=== PATIENT | male | born 1970 | race African-American/Black ===

== ENCOUNTER 2019-10-13 14:37 | Emergency (ER) | payer SELFPAY ==
[2019-10-13 14:44] VITALS: BP 131/75
[2019-10-13] MEDS ORDERED: DEXAMETHASONE SOD PHOS INJ 10 MG/1 ML VIAL IM ONE (15:16)
[2019-10-13] MEDS ORDERED: METHYLPREDNISOLONE ACETATE INJ 40 MG/1 ML ML IM ONE (15:16)
[2019-10-13] MEDS ORDERED: KETOROLAC TROMETHAMINE 60 MG/2 ML SDV IM ONE (15:16)
--- NOTE | 2019-10-13 15:21 | ER Document Report ---
HPI - HPI Patient complains to provider of: Back pain Time Seen by Provider: 10/13/19 15:12 Pain Level: 4 Context: This is a 49-year-old male who is doing some wheelbarrow work when he strained his left back lateral to midline. Associated Symptoms: None Exacerbated by: Denies Similar symptoms previously: No Recently seen / treated by doctor: No Past Medical History - General Information source: Patient - Social History Smoking Status: Never Smoker Frequency of alcohol use: None Drug Abuse: None Family History: None Patient has homicidal ideation: No - Medical History Medical History: Negative Vertical Provider Document - CONSTITUTIONAL Agree With Documented VS: Yes - HEENT HEENT: Atraumatic, Conjuctival Injection, Normocephalic, PERRLA - NECK Neck: Normal Inspection - RESPIRATORY Respiratory: Breath Sounds Normal, No Respiratory Distress - CARDIOVASCULAR Cardiovascular: Regular Rate, Regular Rhythm - GI/ABDOMEN Gastrointestinal: Abdomen Soft, Abdomen Non-Tender - REPRODUCTIVE Male Genitalia: Normal Inspection - BACK Back: Normal Inspection - MUSCULOSKELETAL/EXTREMETIES Musculoskeletal/Extremeties: MAEW - NEURO Level of Consciousness: Awake, Alert Course - Re-evaluation Re-evalutation: 10/13/19 15:17 No midline tenderness no step-off no crepitus. Patient does have palpable spasm right lateral to midline on the thoracic and lumbar spine. He has no step-off He has no crepitus. He has no loss of bowel or bladder function. He has no saddle anesthesia. He is ambulatory with a rhythmic and steady gait. - Vital Signs Vital signs: Temp Pulse Resp BP Pulse Ox 98.7 F 89 14 131/75 H 95 10/13/19 14:55 10/13/19 14:42 10/13/19 14:42 10/13/19 14:42 10/13/19 14:42 Discharge - Discharge Clinical Impression: Low back strain Qualifiers: Encounter type: initial encounter Qualified Code(s): S39.012A - Strain of muscle, fascia and tendon of lower back, initial encounter Upper back strain Qualifiers: Encounter type: initial encounter Qualified Code(s): S29.012A - Strain of muscle and tendon of back wall of thorax, initial encounter Disposition: HOME, SELF-CARE Instructions: Warm Packs ([facility]), Muscle Strain ([facility]), Pain Medication Injection ([facility]), Low Back Pain ([facility]) Additional Instructions: Low Back Pain Three out of every four people will have an episode of disabling back pain during their lifetime. Most commonly the pain is due to straining of the muscles and ligaments in the low back. Usual treatment includes: (1) Rest on a firm surface. Avoid lying on your stomach. (2) Ice pack the painful area. After a few days, gentle heat may be used intermittently to relax the area, or ice packs can be continued. (3) Medication may be needed -- muscle relaxers and antiinflammatory medicines are commonly used. (4) As the back improves, exercises are prescribed to strengthen the back and abdominal muscles. Your doctor will advise you on the proper care for your back at each stage in your recovery. You may be better in a few days -- or healing may take several weeks. If new symptoms of a "herniated disc" (radiation of pain, numbness, or tingling down the back of the leg or weakness in the leg) occur, you should be re-examined. Further testing may be necessary. Prescriptions: Naproxen Sodium [Naproxen Sodium ER] 500 mg PO Q12 PRN #20 tablet.sa PRN Reason: Methocarbamol [Robaxin 750 mg Tablet] 750 mg PO ASDIR PRN #40 tablet PRN Reason: Tramadol HCl [Ultram] 50 mg PO Q4 #20 tablet Forms: Return to Work
== END 2019-10-13 15:45 | disposition home or self-care (01) ==
LOC: ER 14:37
DX: S39.012A Strain of muscle, fascia and tendon of lower back, initial encounter (principal); S29.012A Strain of muscle and tendon of back wall of thorax, initial encounter; X58.XXXA Exposure to other specified factors, initial encounter
CPT/HCPCS: 99283; 96372; J1885; J1030; J1100